=== PATIENT | female | born 1970 | race Caucasian/White ===

== ENCOUNTER 2018-09-06 09:17 | Day surgery (SDC) | payer OTHER ==
[2018-08-31 18:20] VITALS: BMI 18.0
[2018-09-06] MEDS ORDERED: MIDAZOLAM HCL 2 MG/2 ML SINGLE DOSE VIAL ONE ×2 (10:09→11:46)
[2018-09-06] MEDS ORDERED: ROPIVACAINE HCL 0.5% 30ML VIAL ONE (10:10)
[2018-09-06] MEDS ORDERED: ceFAZolin SODIUM 1 GM VIAL ONE (11:15)
[2018-09-06] MEDS ORDERED: PROPOFOL 20 ML ONE ×5 (11:36→12:29)
[2018-09-06 14:57] VITALS: TEMP 97.8
[2018-09-06] MEDS ORDERED: oxyCODONE HCL 5 MG TABLET PO PRN ×2 (15:25)
[2018-09-06] MEDS ORDERED: ONDANSETRON 4 MG/2 ML VIAL IVPUSH PRN (15:25)
[2018-09-06] MEDS ORDERED: LACTATED RINGERS SOLUTION 1,000 ML IV SCH (15:30)
[2018-09-06 15:39] VITALS: BP 114/68; PULSE 80
--- NOTE | 2018-09-07 13:22 | OP ---
DATE OF OPERATION: 09/06/2018 PREOPERATIVE DIAGNOSIS: Left comminuted displaced intraarticular distal radius fracture, status post open reduction internal fixation with re-displacement of fracture. POSTOPERATIVE DIAGNOSIS: Left comminuted displaced intraarticular distal radius fracture, status post open reduction internal fixation with re-displacement of fracture. OPERATIVE PROCEDURE: 1. Revision open reduction internal fixation of left comminuted intraarticular displaced distal radius fracture with internal fixation of 3 or more fragments. 2. Bone graft substitute placement. 3. Removal of left wrist prosthesis. 4. Left wrist brachioradialis tenotomy. SURGEON: Chandler Phipps MD BILLING MANAGER: CUONG Schwab ANESTHESIA: Regional. COMPLICATIONS: None. ESTIMATED BLOOD LOSS: Minimal. INDICATIONS FOR PROCEDURE: The patient is a 47-year-old female who is about 1 month status post distal radius fracture. She was treated with open reduction internal fixation by another surgeon and upon displacement of the fracture after surgery she was referred to me for further evaluation and possible surgical fixation. I discussed the possibilities with the patient and she decided to proceed with revision open reduction internal fixation with the specific understanding that there may not be adequate bone stock to prevent further collapse and that this likely would not be able to be fixed perfectly. She also understands that her outcome would not be perfect and she will likely have some stiffness and possibly some arthrosis and possible need for further surgery. She desired to proceed. PROCEDURE: After proper identification of the patient and the correct operative site, patient was given a nerve block by the anesthesiologist. She was then brought to the operating room and placed supine on the operating room table where sedation was also given. Intravenous antibiotics were also given. Of note, the patient did have a prior injury to her hand and had a contracture of her finger. The other fingers were moving pretty well. The left upper extremity was prepped and draped in usual sterile fashion. A well-padded tourniquet was placed with a sterile prep. Esmarch bandage used to exsanguinate left upper extremity. Tourniquet was inflated to 250 mmHg. Patient's prior incision was recreated and enlarged slightly proximally and distally. Blunt and sharp dissection was brought through the subcutaneous tissue taking are to protect all tendons and neurovascular structures. The flexor carpi radialis tendon along with the contents of the carpal canal as well as the flexor pollicis longus were bluntly and gently retracted in an ulnarward direction for the remainder of the procedure. Radial artery was retracted radially. Scar tissue was found over the plate and was divided. The prior prosthesis was removed including all the screws. Many of the distal screws were loose. Once the plate was removed, the bone was debrided of any scar tissue. The fracture was significantly displaced and comminuted and fixed in this position with early healing. Careful subperiosteal dissection was performed removing significant amounts of callus. Even once this was completed, mobilization of the distal fragment was not possible. Therefore, a radial-sided brachioradialis tenotomy was performed by elevating the brachioradialis off of the distal radius in a subperiosteal fashion and lengthening it appropriately. First dorsal compartment was also released subperiosteally. Dorsal callus was also removed carefully after pronating the proximal shaft in relation to the distal fragments. Once this was accomplished, I was able to reduce the fracture into a satisfactory position. This was then held with an [employer] Acu-Loc distal radius plate with distal locking screws and proximal nonlocking screws in bicortical fashion. This achieved satisfactory alignment both visually as well as palpably and confirmed radiographically in multiple planes. There was a very thin wafer of distal radius articular surface and subchondral bone from about the mid radius and ulnar. This was supported by a locking screw, but secure stable fixation was only partially possible. Therefore, given this factor and the fact that there was a void in the bone dorsally and ulnarly, a bone graft substitute was used. This was a hardening calcium phosphate cement provided by [employer]. Once this was completed, the area was stable. Final radiographs confirmed proper placement of hardware and sizing of all hardware. Reduction was also confirmed. The area was irrigated and repaired in layers. Splint was placed. Sterile dressings were applied. Patient was reversed from anesthesia and brought to the recovery room in stable condition. Of note, the distal radioulnar joint and scapholunate intervals were found to be stable. Keven Heck, the minister assistant, was integral throughout this procedure. Procedure could not have been performed without a skilled operative minister assistant. Lisandra [id number]
--- NOTE | 2018-09-08 12:44 | PATH ---
Surgical Pathology Report Patient Name: JAROD PETERSEN Med. Rec. #: [id number] /Age/Gender: 1970 (Age: 47) / F Account: [id number] Location: [facility] AMBULATORY Taken: 09/06/2018 Received: 09/06/2018 Reported: 09/08/2018 Physicians: Chandler Phipps M.D. Specimen(s) Received LEFT WRIST EXPLANTS Clinical History Left wrist fracture Final Diagnosis ORTHOPEDIC HARDWARE, LEFT WRIST, REMOVAL: METALLIC PLATE AND SCREWS CONSISTENT WITH ORTHOPEDIC HARDWARE (GROSS ONLY). Electronically Signed Chris Foster M.D. Gross Description Received fresh labeled "left wrist explants," is a 4.9 x 2.2 x 0.2 cm juan metallic plate. Also received within the same container are 8 metallic screws ranging from 1.3-2.1 cm in length. No soft tissue is present. No sections are submitted, gross only. 09/07/2018 saudi09/07/2018
== END 2018-09-06 15:40 | disposition home or self-care (01) ==
LOC: FASU 09:17
PROVIDERS: ATTEND Orthopaedic Surgery Hand Surgery
PROC: 0PPJ04Z Removal of Internal Fixation Device from Left Radius, Open Approach (ICD-10-PCS; 2018-09-06)
PROC: 0LN50ZZ Release Right Lower Arm and Wrist Tendon, Open Approach (ICD-10-PCS; 2018-09-06)
PROC: 0PSJ04Z Reposition Left Radius with Internal Fixation Device, Open Approach (ICD-10-PCS; principal; 2018-09-06 11:47)
DX: S52.572S Other intraarticular fracture of lower end of left radius, sequela (principal); X58.XXXS Exposure to other specified factors, sequela
CPT/HCPCS: 20680; 25290; 25609; C1713; 73110-TC-LT-FY; 84703; 88300-TC; 94760

== ENCOUNTER 2020-02-27 11:34 | Day surgery (SDC) | payer OTHER ==
[2020-02-25 15:05] VITALS: BMI 20.8
[2020-02-27 12:26] VITALS: TEMP 98.2
[2020-02-27] MEDS ORDERED: MIDAZOLAM HCL 2 MG/2 ML SINGLE DOSE VIAL ONE (12:34)
[2020-02-27] MEDS ORDERED: ROPIVACAINE HCL 0.5% 30ML VIAL ONE (12:34)
[2020-02-27] MEDS ORDERED: ONDANSETRON 4 MG/2 ML VIAL IVPUSH PRN (13:09)
[2020-02-27] MEDS ORDERED: oxyCODONE HCL 5 MG TABLET PO PRN (13:09)
[2020-02-27] MEDS ORDERED: LACTATED RINGERS SOLUTION 1,000 ML IV SCH (13:15)
[2020-02-27] MEDS ORDERED: DEXAMETHASONE SOD PHOSPHATE 4 MG/1 ML VIAL ONE (13:54)
[2020-02-27] MEDS ORDERED: ceFAZolin SODIUM 1 GM VIAL ONE (13:54)
[2020-02-27] MEDS ORDERED: GUM MASTIC/STORAX/MSAL/ALCOHOL 1 DRP DROPSBTL MC ONE (14:38)
--- OUTSIDE RECORDS SUMMARY | 2020-02-27 15:16 | XMS ---
:1970 Author Organization [facility] Care Team Providers Name Role Phone SWEETIE Unavailable Unavailable Re-disclosure Warning The records that you are about to access may contain information from federally- assisted alcohol or drug abuse programs. If such information is present, then the following federally mandated warning applies: This information has been disclosed to you from records protected by federal confidentiality rules (42 CFR part 2). The federal rules prohibit you from making any further disclosure of this information unless further disclosure is expressly permitted by the written consent of the person to whom it pertains or as otherwise permitted by 42 CFR part 2. A general authorization for the release of medical or other information is NOT sufficient for this purpose. The Federal rules restrict any use of the information to criminally investigate or prosecute any alcohol or drug abuse patient.The records that you are about to access may contain highly sensitive health information, the redisclosure of which is protected by Article 27-F of the [facility] Public Health law. If you continue you may haveaccess to information: Regarding HIV / AIDS; Provided by facilities licensed or operated by the [facility] Office of Mental Health; or Provided by the [facility] Office for People With Developmental Disabilities. If such information is present, then the following [facility] mandated warning applies: This information has been disclosed to you from confidential records which are protected by state law. State law prohibits you from making any further disclosure of this information without the specific written consent of the person to whom it pertains, or as otherwise permitted by law. Any unauthorized further disclosure in violation of state law may result in a fine or [place] health [facility] sentence or both. A general authorization for the release of medical or other information is NOT sufficient authorization for further disclosure. Encounters Encounter Providers Location Date Indications Data Source(s ) Outpatient 04/07/2020 01:45:00 [facility] 11/02/2019 03:00:00 [facility] Out[facility] 11/02/2019 02:15:00 [facility] PM EDT - 11/02/2019 [facility] 02:27:20 PM EDT Patient discharged. Outpatient 05/28/2019 02:45:00 PM EST - [facility] 05/28/2019 01:54:40 PM EST System Inc Patient discharged. Outpatient 02/26/2019 12:00:00 AM EDT - [facility] 02/26/2019 04:57:01 PM EDT System Inc Patient discharged. Outpatient 02/05/2019 05:00:00 PM EDT - [facility] 02/05/2019 05:07:34 PM EDT System Inc Patient discharged. Outpatient 01/23/2019 04:45:13 PM EDT [facility] Outpatient 01/23/2019 04:30:00 PM EDT - [facility] 01/23/2019 05:12:33 PM EDT System Inc Patient discharged. Outpatient 01/09/2019 [facility] 04:24:39 PM EDT [facility] Outpatient 10/26/2018 [facility] 04:29:27 PM EDT [facility] Outpatient 10/26/2018 [facility] 04:28:50 PM EDT [facility] Outpatient 10/26/2018 [facility] 04:26:06 PM EDT [facility] Outpatient 10/26/2018 [facility] 03:58:58 PM EDT [facility] Outpatient 10/26/2018 [facility] 03:55:55 PM EDT [facility] S Admitter: KAREN 08/17/2018 Unspecified BSMAHENDRA - Adis PITT 12:40:00 PM EST fracture of the Kendra ritan lower end of left Hospita l radius, initia Unspecified fracture of the lower end of left radius, initia S Admitter: KAREN 08/17/2018 12:35:21 Unspecified fracture [facility] - Good SANJANAAAR PM EST of the lower end [facility] left radius, initia Unspecified fracture of the lower end of left radius, initia S Admitter: KAREN 08/17/2018 11:59:00 Unspecified fracture [facility] - Good ADWOAUSHAAR AM EST - 08/17/2018 of the [facility] 07:03:00 PM EST left radius, initia Unspecified fracture of the lower end of left radius, initia S Admitter: KAREN 08/17/2018 12:00:00 Unspecified fracture [facility] - Good ADWOAUSHAAR AM EST - 08/17/2018 of the [facility] 07:03:00 PM EST left radius, initia Unspecified fracture of the lower end of left radius, initia Outpatient 07/31/2018 03:06:55 [facility] 04[facility]:39 PM EST [facility] Outpatient 07/31/2018 12:00:00 AM EST [facility] Immunizations Vaccine Date Status Description Data Source(s) New in 2011. IIV4 05/28/2019 completed Influenza 05/28/2019 [facility] 12:00:00 AM EST Vaccine (Quad) [facility] Inc This CVX code 07/19/2018 completed Influenza 07/19/2018 [facility] allows reporting 12:00:00 AM EST Vaccine Nicol of a vaccination [facility] System when formulation Inc is unknown (for example, when recording a Influenza vaccination when noted on a vaccination card) Medications Medication Brand Start Product Dose Route Administrative Pharmacy [facility] Indications Reaction Description Data Name Date Form Instructions Instructions Source(s) Diazepam 2 diazeP 2 mg Oral active Schizophreni Take 1 Tab Bon MG Oral AM 2019 a, by mouth as Sec[facility] Tablet (Valiu 12:00: unspecified needed for [facility] diazePAM m) 2 00 AM type ([facility]) Anxiety. [facility] (Valium) 2 mg EDT Daily System I nc mg tablet tablet Amount: 192 mg. Schizophrenia, unspecified type (HCC) Ketoconazole ketoconazole 11/02/2019 active Seborr hea Apply Bon 20 MG/ML (NIZORAL) 2 % 12:00:00 AM capitis to [facility] Medicated shampoo EDT scalp Charit y Shampoo twice a Health ketoconazole week System (NIZORAL) 2 % Inc shampoo Seborrhea capitis Diclofenac diclofenac 11/02/2019 4 Topical active Chondro malacia Apply 4 g Bon Sodium 0.01 (VOLTAREN) 12:00:00 AM g of both to [facility] MG/MG 1 % gel EDT patellae affected Eve rity Topical Gel area four Hea lth diclofenac (4) times Syst em (VOLTAREN) daily. Inc 1 % gel Chondromalacia of both patellae olanzapine 20 ZyPREXA 20 mg 10/14/2019 active TAKE 1 Bon MG Oral Tablet tablet 12:00:00 AM T ABLET BY [facility] [Zyprexa] EDT MOUTH EVERY Eve rity ZyPREXA 20 mg DAY Heal th tablet DIRECTED System Inc 200 ACTUAT ProAir HFA 90 09/07/2019 active TAKE 2 Bon Albuterol 0.09 mcg/actuation 12:00:00 AM PUFFS EVERY [facility] MG/ACTUAT inhaler EDT 4-6 HOURS Ch arity Metered Dose NEEDED He [facility] Inhaler System [ProAir] Inc ProAir HFA 90 mcg/actuation inhaler 30 ACTUAT BREO ELLIPTA 08/14/2019 1 Inhala active Take 1 Puff Bon fluticasone 200-25 12:00:00 AM {pu tion by [facility] furoate 0.2 mcg/dose EST ff} inhalatio n Nicol MG/ACTUAT / inhaler daily. Hea lt vilanterol System 0.025 Inc MG/ACTUAT Dry Powder Inhaler [Breo] BREO ELLIPTA 200-25 mcg/dose inhaler Amitriptyline amitriptyline 03/23/2019 20 Oral active Take 2 Tabs Bon Hydrochloride (ELAVIL) 10 mg 12:00:00 AM mg by mouth [facility] 10 MG Oral tablet EDT nightly. Eve rity Tablet Health amitriptyline System (ELAVIL) 10 mg Inc tablet 200 ACTUAT PROAIR HFA 90 03/16/2019 active TAKE 2 Bon Albuterol 0.09 mcg/actuation 12:00:00 AM PUFFS EVERY [facility] MG/ACTUAT inhaler EDT 4-6 HOURS Ch arity Metered Dose NEEDED He alth Inhaler System [ProAir] Inc PROAIR HFA 90 mcg/actuation inhaler montelukast 10 montelukast 02/28/2019 active FILL Bon MG Oral Tablet (SINGULAIR) 10 12:00:00 AM 10/7...TAKE [facility] montelukast mg tablet EDT 1 TABLET BY Nicol (SINGULAIR) 10 MOUTH EVER Y Health mg tablet DAY System Inc celecoxib 200 celecoxib 02/27/2019 aborted Strain 1 cap daily Bon MG Oral (CELEBREX) 200 12:00:00 AM of [facility] Capsule mg capsule EDT right Temitope ty celecoxib knee, Health (CELEBREX) 200 initia Sys tem mg capsule l Inc encoun ter Strain of right knee, initial encounter 30 ACTUAT BREO 02/26/2019 1 Inhalation active T pallavi 1 Puff Bon fluticasone ELLIPTA 12:00:00 AM {puff} b y [facility] furoate 0.2 200-25 EDT inhalation Nicol MG/ACTUAT / mcg/dose daily. He alth vilanterol inhaler System 0.025 Inc MG/ACTUAT Dry Powder Inhaler [Breo] BREO ELLIPTA 200-25 mcg/dose inhaler celecoxib celecoxib 02/05/2019 active Stra 1 cap daily Bon 200 MG Oral (CELEBREX) 12:00:00 AM in [facility] Capsule 200 mg EDT of Nicol celecoxib capsule [facility] (CELEBREX) t System 200 mg knee Inc capsule , init ial enco unte r Strain of right knee, initial encounter Amitriptyline amitriptyline 01/23/2019 20 Oral active Take 2 Bon Hydrochloride (ELAVIL) 10 mg 12:00:00 AM mg Tabs by [facility] 10 MG Oral tablet EDT mouth Charit y Tablet nightly. Health amitriptyline System (ELAVIL) 10 mg Inc tablet Ketoconazole ketoconazole 01/23/2019 aborted Sebor virgilio Apply to Bon 20 MG/ML (NIZORAL) 2 % 12:00:00 AM capitis scalp [facility] Medicated shampoo EDT twice a Mirela ity Shampoo [facility] Health ketoconazole System (NIZORAL) 2 % Inc shampoo Seborrhea capitis Triamcinolone triamcinolone 01/23/2019 Topical aborted Seborrhea Apply to Bon Acetonide 1 acetonide 12:00:00 AM capitis affected [facility] MG/ML Topical (KENALOG) 0.1 EDT ar ea two Nicol Cream % topical (2) times Heal th triamcinolone cream a day. Sys tem acetonide use thin Inc (KENALOG) 0.1 layer % topical cream Seborrhea capitis Acetaminophen 325 MG / oxyCODONE-acetaminophen 01/23/2019 1 O ral active Myofascial Take 1 Bon Oxycodone Hydrochloride (PERCOCET) 5-325 mg per 12:00:00 AM {tbl} pain Tab by [facility] 5 MG Oral Tablet tablet EDT syndrome mo uth Nicol oxyCODONE-acetaminophen d aily Health (PERCOCET) 5-325 mg per a s System tablet needed Inc for Pain for up to 30 days. Myofascial pain syndrome 24 HR venlafaxine-SR 01/19/2019 aborted TAKE ONE Bon venlafaxine 75 (EFFEXOR-XR) 75 12:00:00 AM CAPSULE BY [facility] MG Extended mg capsule EDT MOUTH E VERY Nicol Release Oral MORNING Heal th Capsule System venlafaxine-SR Inc (EFFEXOR-XR) 75 mg capsule Fluphenazine fluPHENAZine 01/16/2019 active TAKE 1 Bon Hydrochloride 1 (PROLIXIN) 1 mg 12:00:00 AM TABLET BY [facility] MG Oral Tablet tablet EDT MOUTH EV JENNIFER Nicol fluPHENAZine DAY Health (PROLIXIN) 1 mg Syst em tablet Inc 24 HR venlafaxine-SR 01/02/2019 active T PALLAVI ONE BY Bon venlafaxine 150 (EFFEXOR-XR) 12:00:00 AM MOUTH IN [facility] MG Extended 150 mg capsule EDT THE MORNING Nicol Release Oral Health Capsule System venlafaxine-SR Inc (EFFEXOR-XR) 150 mg capsule Acetaminophen oxyCODONE-aceta 08/14/2018 aborted 1-2 TABS Bon 325 MG / minophen 12:00:00 AM EVERY 4-6 [facility] Oxycodone (PERCOCET) EST HOURS BY Nicol Hydrochloride 5 5-325 mg per M OUTH Health MG Oral Tablet tablet NEEDED T HIS System oxyCODONE-aceta MEDICATIO N Inc minophen IS FOR (PERCOCET) AFTER 5-325 mg per SURGERY tablet quetiapine 25 SEROQUEL 25 mg 08/08/2018 aborted TAKE 1 Bon MG Oral Tablet tablet 12:00:00 AM T ABLET (25 [facility] [Seroquel] EST MG) BY ORAL Ch arity SEROQUEL 25 mg ROUTE AT H ealt tablet NIGHT System Inc 24 HR venlafaxine-SR 07/24/2018 aborted TAKE ONE Bon venlafaxine 75 (EFFEXOR-XR) 75 12:00:00 AM TABLET BY [facility] MG Extended mg capsule EST MOUTH I N Nicol Release Oral THE MORNING Health Capsule System venlafaxine-SR Inc (EFFEXOR-XR) 75 mg capsule Amitriptyline amitriptyline 07/19/2018 aborted TAKE 2 Bon Hydrochloride (ELAVIL) 10 mg 12:00:00 AM TABLETS BY [facility] 10 MG Oral tablet EST MOUTH Charit y Tablet BEFORE BED Health amitriptyline System (ELAVIL) 10 mg Inc tablet 30 ACTUAT BREO ELLIPTA 07/19/2018 active TAKE 1 PUFF Bon fluticasone 200-25 mcg/dose 12:00:00 AM BY MOUTH [facility] furoate 0.2 inhaler EST EVERY DAY Nicol MG/ACTUAT / Health vilanterol System 0.025 MG/ACTUAT Inc Dry Powder Inhaler [Breo] BREO ELLIPTA 200-25 mcg/dose inhaler 200 ACTUAT PROAIR HFA 90 07/19/2018 active TAKE 2 Bon Albuterol 0.09 mcg/actuation 12:00:00 AM PUFFS EVERY [facility] MG/ACTUAT inhaler EST 4-6 HOURS Ch arity Metered Dose NEEDED He alth Inhaler System [ProAir] PROAIR Inc HFA 90 mcg/actuation inhaler 24 HR venlafaxine-SR 07/18/2018 aborted TAKE 1 Bon venlafaxine 150 (EFFEXOR-XR) 12:00:00 AM CAPSULE BY [facility] MG Extended 150 mg capsule EST RIAZ TH EVERY Nicol Release Oral MORNING Heal th Capsule System venlafaxine-SR Inc (EFFEXOR-XR) 150 mg capsule quetiapine 25 SEROQUEL 25 mg 07/13/2018 aborted TAKE 1 Bon MG Oral Tablet tablet 12:00:00 AM T ABLET BY [facility] [Seroquel] EST MOUTH TWICE Ch arity SEROQUEL 25 mg A DAY [facility] tablet (07/11) System Inc Diazepam 2 MG diazePAM 07/11/2018 aborted TAKE 1 Bon Oral Tablet (VALIUM) 2 mg 12:00:00 AM TABLET (2 [facility] diazePAM tablet EST MG) BY ORAL Ch arity (VALIUM) 2 mg ROUTE AT He alth tablet NIGHT System Inc Acetaminophen acetaminophen-c 07/07/2018 aborted 1 TAB BY Bon 300 MG / odeine (TYLENOL 12:00:00 AM MOUTH EVERY [facility] Codeine #3) 300-30 mg EST 6 HOURS Nicol Phosphate 30 MG per tablet NEE DED FOR Health Oral Tablet PAIN MDD 2 Sy stem acetaminophen-c Inc odeine (TYLENOL #3) 300-30 mg per tablet olanzapine 5 MG ZYPREXA 5 mg 06/21/2018 15 Oral aborted Take 15 mg Bon Oral Tablet tablet 12:00:00 AM mg by m outh [facility] [Zyprexa] EST daily as Charit y ZYPREXA 5 mg needed. [facility] tablet System Inc olanzapine 15 ZYPREXA 15 mg 06/21/2018 aborted Bon MG Oral Tablet tablet 12:00:00 AM [facility] [Zyprexa] EST Nicol ZYPREXA 15 mg Health tablet System Inc montelukast 10 montelukast 06/13/2018 active FILL Bon MG Oral Tablet (SINGULAIR) 10 12:00:00 AM 107...TAKE [facility] montelukast mg tablet EST 1 TABLET BY [facility] (SINGULAIR) 10 MOUTH EVER Y Health mg tablet DAY System Inc OTHER Oral active Take by Bon mouth [facility] daily. [employer]ivan [facility]DEL Inc KAVA KAVA PO Oral active Take by B on mouth two [facility] (2) times a Nicol day. [employer] VALERIAN PO Oral active Take by Jermain n mouth as [facility] needed. IntooBR 60 ACTUAT budesonide-form 2 Inhalati aborted Take 2 Bon Budesonide 0.16 oterol {puf on Puffs b y [facility] MG/ACTUAT / (SYMBICORT) f} inhala tion [facility] formoterol 160-4.5 two (2) Hea lth fumarate 0.0045 mcg/actuation times a System MG/ACTUAT HFA inhaler day. Inc Metered Dose Inhaler [Symbicort] budesonide-form oterol (SYMBICORT) 160-4.5 mcg/actuation HFA inhaler Clonazepam 1 MG clonazePAM Oral active T pallavi by Bon Oral Tablet (KLONOPIN) 1 mg mo uth [facility] clonazePAM tablet daily. Temitope ty (KLONOPIN) 1 mg Takes is Health tablet System Inc acetaminophen Oral aborted Take by Bon (TYLENOL PO) mouth. Secou rs [facility] [employer] quetiapine 100 QUEtiapine 50 Oral aborted T pallavi 50 mg Bon MG Oral Tablet (SEROQUEL) 100 mg by mouth [facility] QUEtiapine mg tablet two (2) C harity (SEROQUEL) 100 times a He alth mg tablet day. System Inc Zolpidem zolpidem Oral active Take by B on tartrate 10 MG (AMBIEN) 10 mg mouth [facility] Oral Tablet tablet nightly. arity zolpidem Health (AMBIEN) 10 mg Syste m tablet Inc venlafaxine HCl 225 Oral aborted Take 2 25 mg Bon (EFFEXOR XR PO) mg by mouth [facility] daily. [facility] [employer] olanzapine 20 OLANZapine 20 Oral aborted Ta ke 20 mg Bon MG Oral Tablet (ZYPREXA) 20 mg mg by mouth [facility] OLANZapine tablet nightly. Eve rity (ZYPREXA) 20 mg [facility] tablet System Inc Sertraline 100 sertraline Oral aborted T pallavi by Bon MG Oral Tablet (ZOLOFT) 100 mg mouth [facility] sertraline tablet daily. Temitope ty (ZOLOFT) 100 mg tablet System Inc Amitriptyline amitriptyline Oral aborted Take by Bon Hydrochloride (ELAVIL) 10 mg m outh [facility] 10 MG Oral tablet nightly. Eve rity Tablet Health amitriptyline System (ELAVIL) 10 mg Inc tablet celecoxib 200 celecoxib Oral aborted Elver e by Bon MG Oral Capsule (CELEBREX) 200 mouth two [facility] celecoxib mg capsule (2) times a Nicol (CELEBREX) 200 day. Healt h mg capsule System Inc Diazepam 2 MG diazePAM 2 mg Oral aborted Take 2 mg Bon Oral Tablet (VALIUM) 2 mg by m outh as [facility] diazePAM tablet needed for Eve rity (VALIUM) 2 mg Anxiety. He alth tablet System Inc Clonazepam 0.5 clonazePAM 0.5 Oral active Ta ke 0.5 mg Bon MG Oral Tablet (KLONOPIN) 0.5 mg by mouth [facility] clonazePAM mg tablet nightly. Nicol (KLONOPIN) 0.5 Healt h mg tablet System Inc olanzapine 30 Oral aborted Take 30 mg Bon (ZYPREXA PO) mg by mouth Sec ours nightly. [facility] amitriptyline 20 Oral aborted Take 20 mg Bon HCl mg by mouth [facility] (AMITRIPTYLINE nightly. C harity PO) Health System Inc OTHER Oral active Take by Bon mouth two [facility] (2) times a [facility] day. [employer] COQ10, Oral aborted Take by Bon LIPOSOMAL mouth [facility] UBIQUINOL, PO daily. [facility] [employer] Inc quetiapine 125 Oral aborted Take 125 mg Bon fumarate mg by mouth [facility] (SEROQUEL PO) nightly. [facility] Insurance Providers Payer name Policy type Policy ID Covered Covered republican's Policy P holden / Coverage republican ID relationship to [employer] type [place] MEDICAID [id number] SP [id number] MEDICARE [id number] MEDICAID OF Medicaid [id number] [place] [id number] [place] [id number] MEDICA[place] OF [id number] [place] [id number] OF [place] [facility] [id number] PART A AND B 8 MEDICAID OF [id number] [place] [id number] MEDICAID OF [id number] [place] OF Medicaid [id number] [place] [id number] [place] OF Medicaid [id number] [place] [id number] [place] [id number] Problems, Conditions, and Diagnoses Code Display Name Description Problem Effective Data Type Dates Source(s) J45.40 Moderate Moderate [id number] 11/02/2019 [facility] persistent asthma persistent asthma 12:00:00 AM [facility] without without EDT Health complication complication System Inc F20.9 Schizophrenia Schizophrenia [id number] 11/02/2019 [facility] 12:00:00 AM [facility] F20.9 Schizophrenia, Schizophrenia, Diagnosis 11/02/2019 [facility] unspecified unspecified 02:03:19 PM [facility] Z23 Encounter for Encounter for Diagnosis 05/28/2019 [facility] immunization immunization 01:49:36 PM [facility] L21.0 Seborrhea capitis Seborrhea capitis Diagnosis 02/26/2019 [facility] 04:02:47 PM [facility] S86.911A Strain of Strain of Diagnosis 02/05/2019 [facility] unspecified unspecified 04:46:02 PM [facility] muscle(s) and muscle(s) and [facility] tendon(s) at tendon(s) at System Inc lower leg level, lower leg level, right leg, right leg, initial encounter initial encounter M79.18 Myalgia, other Myalgia, other Diagnosis 01/23/2019 [facility] site site 04:29:46 PM [facility] S52.502A Unspecified Unspecified Diagnosis 08/17/2018 [facility] - fracture of the fracture of the 11:59:00 AM Goo d lower end of left lower end of left EST [facility] radius, initial radius, initial Hosp ital encounter for encounter for closed fracture closed fracture R15.9 Full incontinence Full incontinence Diagnosis 07/31/2018 [facility] of feces of feces 03:06:55 PM [facility] [id number] 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 [facility] (disorder) System [facility] [id number] Seborrhea capitis Diagnosis [facility] [id number] Schizophrenia, Diagnosis [place] s unspecified type [facility]) [facility] System [facility] [id number] Strain of right Diagnosis [facility] knee, initial [facility] System [facility] [phone] Strain of right Diagnosis [facility] knee, initial Critical [facility] System [facility] [id number] Myofascial pain Diagnosis Bon Sec[facility] rs syndrome [facility] [id number] Seborrhea capitis Diagnosis [facility] [id number] Seborrhea capitis Diagnosis [facility] Surgeries/Procedures Procedure Description Date Indications Data Source(s) HCG URINE, HCG URINE, Routine 08/17/2018 12:23 9 [facility] QL. - POC QL. - POC PM EST 05:23:00 PM EST [facility] [employer] Results ID Date Data Source [id number] 08/23/2018 01:36:57 PM EDT [facility] - [place] [address] [address] [place], [place] [id number]: JAROD MORINMRN: [id number]: [id number] #: [id number] DATE: 08/17/2018OPERATIVE REPORTPROCEDURE DATE : 08/17/2018SURGEON: Karen Pitt MDASSISTANT: None.PREOPERATIVE DIAGNOSI S: Left distal radius fracture.POSTOPERATIVE DIAGNOSIS: Left distal radius fracture. PROCEDURE: Open reduction and internal fixation, left distal radius fracture.AN ESTHESIA: Regional with sedation.PROSTHESIS: Filemon distal volar radial plate.COMPL ICATIONS: None.SPECIMENS REMOVED: None.URINE OUTPUT: None.ESTIMATED BLOOD LOSS: Minimal.INDICATION FOR PROCEDURE: Unstable fracture of the left distal rad ius whichdrifted into malalignment.PROCEDURE: The patient was brought to the operatin g room and placed on theoperative table in the supine position. She was given erik onal anesthesia withsedation. The left upper extremity was prepped and draped in ster ile fashion.Time-out was called after sterile prep and drape. The patient receivedpre operative intravenous antibiotics prophylactically. Exsanguination wasper formed and the tourniquet was inflated to 250 mmHg for just under an hour.An incision was made over the flexor carpi radialis tendon through the skin.The subcutaneous layer was spread and the tendon was identified. An incisionwas made in the fascia around the tendon which was mobilized for radial andulnar sided access. An in cision was made over the pronator quadratus fascia andthe flexor pollicis tendon was identified and protected throughout the case.The pronator quadratus was elevated off of the distal radius and the fracturewas studied and identified. The rubbery anika mike formation was debrided on thevolar surface to allow for reduction and align ment. The fracture had shortenedand was in radial deviation and was carefully repos itioned so that it would comeout to appropriate length and dorsal tilt on th e lateral view. The C-arm imageintensifier was used throughout the case to optimize the fracture position. Thepercutaneous pins were placed through the radial styloid t o hold the fracture inplace and a volar distal radial plate was then affixed to the radius. Care wastaken to start with a slotted screw to optimize length and the n distally theplate was pinned. Once good alignment was in place, the plate was fi xed to thedistal radius starting with the distal row and working proximally. All of thescrews on the plate were filled in order to give the best support. There w asnot a window in the plate to pack graft through in this case and the fixationloo ked and felt solid. The wrist was put through a range of motion and therewas a bsolutely no grinding or crepitus. Care was taken to shorten a couple ofthe distal r ow screws so that they did not reach into the joint or close to thejoint as a final ou tcome. The distal radius appeared to be solidly affixed whenthe wrist was moved on imaging visualization. The patient does have aseparation of the scapholunate kvng nt which as I discussed with Dr. Phipps was notfixed at this time as in this case in the left hander of a 47-year-old patientthe recovery is more rapid and the outcome w ould be some more. The patient wasreturned to recovery room after closure.Closure w as performed with Vicryl and then Monocryl sutures and then a steriledressing was p laced. The tourniquet was released and the hand became pink veryquickly. There was no active bleeding through the dressing. The steriledressing was reinforced with a splint and soft padding and the Charles bandage waswrapped gently around the forearm to avoid over compressing and creating atourniquet effect. The patient was ret urned to the recovery room in a sling ingood condition. KAREN PITT MDDD: #08/17/2018 16:55:15/BK DT: 2018 0:46:[id number] #: [id number] / [id number] Name Value Range Interpretation Code Description Data [facility] rce(s) Supporting Document(s ) ID Date Data Source [id number] 08/18/2018 08:21:39 AM EST [facility] FLUOROSCOPYMultiple digital images were obtained during ORIF of the distal radialfracture.All interpretations durin g the procedure were made by the attending physician.TOTAL FLUOROSCOPY TIME: 1.1 mi nutes.TOTAL NUMBER (#) OF FLUOROSCOPY IMAGES: 3The films are available via PACS.Signin g date/time: 08/18/2018 8:21 AMSigned by: MARVIN JASSO Name Value Range Interpretation Code Description Data [facility] rce(s) Supporting Document(s ) ID Date Data Source [id number] 08/18/2018 07:37:53 AM EST [facility] Left breast 2 view.HISTORY: Foreign bod y.There is no evidence of a radiopaque foreign body. I am informed that thespon gecount is correct. Findings discussed with Elidia in the operating room todayat a pproximately 4:32 PM.There is open reduction internal fixation. Name Value Range Interpretation Code Description Data Supporting Source(s) Document(s ) IMP IMPRESSION: No [facility] evidence of [facility] foreign body. . Signing date/time: 08/18/2018 7:37 AMSign ed by: SHANNEN MAHONEY ID Date Data Source [id number] 08/17/2018 04:54:54 PM EST [facility] Procedure(s):RADIUS DISTAL OPEN REDUCTI ON INTERNAL FIXATION LEFT VANESSA FILEMON fixation.Anesthesia Post EvaluationMulti modal analgesia: multimodal analgesia used between 6 hours prior toanesthesia start to PACU dischargePatient location during evaluation: PACUPatient participation: c omplete - patient participatedLevel of consciousness: awake and alertPain score : 0Pain management: adequateAirway patency: patentAnesthetic complications: noCardio vascular status: acceptableRespiratory status: acceptableHydration status: acce ptablePost anesthesia nausea and vomiting: noneVisit VitalsBP 129/85Pulse 98Temp 36 .2 C (97.2 F)Resp 18Ht 5' 5" (1.651 m)Wt 48.5 kg (107 lb)SpO2 96%BMI 17.81 kg/m Name Value Range Interpretation Code Description Data Dom rce(s) Supporting Document(s ) ID Date Data Source [id number] 08/17/2018 04:50:08 PM EST [facility] BRIEF OPERATIVE NOTEDate of Procedure: Preoperative Diagnosis: Unspecified fracture of the lower end of left radius ,initial encounter for closed fracture [S52.502A]Postoperative Diagnosis: Unspe cified fracture of the lower end of left radius,initial encounterProcedure(s):RAD IUS DISTAL OPEN REDUCTION INTERNAL FIXATION LEFT VANESSA FILEMON fixationSurgeon(s) and Role: * Karen Pitt MD - PrimarySurgical Lamp Replacer: noneSurgical Staff:Circ-1: Elidia Reid RNScrub Tech-1: Corbin WylieEvent Time In Time OutIncision Start 1538Incision Close 1632Anesthesia: MACEstimated Blood Loss: minSpecimens: * No specimens in log *Findings: impacted and soft boneComplic ations: noneImplants: * No implants in log * Name Value Range Interpretation Code Description Data Dom rce(s) Supporting Document(s ) ID Date Data Source [id number] 08/17/2018 03:54:45 PM EST [facility] Anesthetic HistoryReview of Systems / Me dical HistoryPatient summary reviewed, nursing notes reviewed and pertinent lab s reviewedPulmonaryAsthma : well controlled Neuro/PsychPsychiatric history Cardiovas cularExercise tolerance: >4 METSGI/Hepatic/Renal Endo/OtherArthritis Other FindingsComments: Pt anxious about going from holding to OR, psych hxLyme d xPhysical ExamAirwayMallampati: IITM Distance: 4 - 6 cmNeck ROM: normal range of motionMouth opening: Normal CardiovascularRhythm: regularRate: jose l DentalDentition: Caps/crownsPulmonaryDecreased breath dom nds: bilateral Abdominal Other FindingsComments: No wheezing, (controll ed with BreoAnesthetic PlanASA: 2Anesthesia type: general and regional - brachial pl exus blockInduction: InhalationalAnesthetic plan and risks discussed with: Patient Name Value Range Interpretation Code Description Data Dom rce(s) Supporting Document(s ) ID Date Data Source [id number] 08/17/2018 03:49:03 PM EST [facility] Peripheral BlockStart time: 08/17/2018 3:0 5 PMEnd time: 08/17/2018 3:10 PMPerformed by: Hector Alvarado MDAuthorized by: Hector Morton MDPre-procedure:Indications: at surgeon's request and post-op pain ma nagementPreanesthetic Checklist: patient identified, risks and benefits discussed , sitemarked, timeout performed, anesthesia consent given and patient being monitore dTimeout Time: 15:05Block Type:Block Type: SupraclavicularLaterality: LeftMonitori ng: Standard ASA monitoring, continuous pulse ox, frequent vital signchecks, hea rt rate and responsive to questionsInjection Technique: Single shotProcedures: ultra sound guidedPatient Position: seatedPrep: alcoholLocation: SupraclavicularNeedle Type: SonoPlexNeedle Gauge: 22 GNeedle Localization: Anatomical landmarks, inf iltration and ultrasound guidanceAssessment:Number of attempts: 1Injection Assessment: Incremental injection every 5 mL, local visualizedsurrounding nerve on ultrasound, negative aspiration for blood and nointravascular symptomsPatien t tolerance: Patient tolerated the procedure well with no immediatecomplications Name Value Range Interpretation Code Description Data Dom rce(s) Supporting Document(s ) ID Date Data Source [id number] 08/17/2018 02:53:26 PM EST [facility] H&P Update:Jarod Marlys Morin was seen and examined.History and physical has been reviewed. The patient has been examined. Therehave been no significant clinical changes since the completion of the orig inallydated History and Physical.Signed By: Karen Pitt MD August 17, 2018 2:53 P M Name Value Range Interpretation Code Description Data Dom rce(s) Supporting Document(s ) ID Date Data Source [id number] 08/17/2018 12:37:07 PM EST [facility] Name Value Range Interpretation Description Data Sup porting Code Source(s) Document(s ) Choriogonadotropin NEG [facility] - ( test) Good [Presence] in Urine [facility] ID Date Data Source [id number] 08/16/2018 05:02:54 PM EST [facility] Patient states having left wrist surgery with Dr. Pitt. Name Value Range Interpretation Code Description Data Dom rce(s) Supporting Document(s ) ID Date Data Source [id number] 08/14/2018 10:23:44 PM EST [facility] Chief ComplaintThe Chief Complaint is: L eft Wrist.Reason For VisitVisit for: exam following treatment of a fracture and Da te of injury: 08/02/2018.Injury caused by fall.History of Present IllnessSiobmerle wilde is a 47 year old female. Visit for: Left Wrist Pain.Patient is present for a fracture follow up visit of the left wrist. Patient isdoing well and has continued c omplaints of pain in her left wrist.Current Medication Amitriptyline Oral Tablet 0 days, 0 refills Effexor Oral Tablet 0 days, 0 refills Klonopin Oral Tablet 0 days, 0 refills ZyPREXA 10MG Oral Tablet 0 days, 0 refillsMedication list reviewe d.Past Medical/Surgical HistoryDiagnoses:Asthma.Depression.Lyme diseasePartial knee replacementmedi port.Social HistoryBehavioral: No tobac co use.Alcohol: Not using alcohol.Drug Use: Not using drugs.Allergies No Known All ergiesFamily HistoryFamily medical history was unknownReview Of SystemsSystemic: No fever, no chills, and no recent weight change.Head: No headache.Neck: No neck p ain.Otolaryngeal: No epistaxis and no sore throat.Cardiovascular: No chest pain or discomfort and no palpitations.Pulmonary: No dyspnea and no cough.Gastrointestinal: N o abdominal pain.Genitourinary: No hematuria, no urinary loss of control, and no pregn chante.Endocrine: No polydipsia.Hematologic: No easy bleeding and no tendency for easy b ruising.Musculoskeletal: No lower back pain. No muscle aches. Pain localized to one ormore joints.Skin: No rash.Mild residual pain in the left wrist s/p Fx distal rad ius.Physical FindingsCAST IS LOOSE. PATIENT IS NT. SKIN EDGES INTACT.General Appear ance: Well developed. In no acute distress.Neurological: Oriented to time , place, and person.TestsImaging:X-Ray Of The Wrist:Reviewed x-ray of wrist, complete - three or more views -left.X-ray of wrist, complete - three or more views were perf ormed -left.Xrays performed and reviewed in the office 08/11/18. Fx has compressed. She haslost some radial height on the lateral view. Less than 10 degrees dorsal tilt. Primarily extra-articular.Assessment Closed fracture of the distal end of the radius -leftCounseling/Education Educational resources were provided to the patient r egarding their conditionThe patient was advised of the three general categories of treatment available:1. Live with the problem and make adjustments.2. Nonopera tive care including pills, injections, physical therapy, bracing(where applicab le), home exercises.3. Surgical care including arthroscopic or open technique s.Discussed SHE HAS LOST 1.25 CM ON THE RADIAL SIDE, AND SHE IS TILTED DORSALLY A FEWDEGREES. THIS COMBINATION MAY RESULT IN VISIBLE DEFORMITY AND WEAKNESS THAT ATTH E MOMENT COULD BE CONTROLLED BY SURGERY. I ADVISE ORIF BECAUSE THE FX DIDSHIFT TO A N UNACCEPTABLE POSITION THAT MAY AFFECT HER FUNCTION ADVERSELY. Discussion of ortho pedic surgery limitations and risksPlan Unsp fracture of the lower end of left r Oumou broussard X-Ray Today/Ext.,Upp., In Office: Wrist L (AP,lat, oblique) X-Wyatt ppts/PostOp: 03-4 days post-op Instructions: with P.A.*Surgery/ORIF: di stal radius, leftNotesMajority of visit was spent in counseling regarding diagnosis & treatmentoptions.OtherMY SCRIBE WAS PRESENT AND CONTRIBUTED TO THE DOCUMENTATION OF THIS NOTEHealth Reminders Assess Tobacco Use satisfied 08/11/2018.Karen Pitt MDElectronically signed by: Karen Pitt Date: 08/11/2018 15:32 Name Value Range Interpretation Code Description Data Dom rce(s) Supporting Document(s ) Procedure Social History Code Duration Value Status Description Data Source(s ) Alcohol intake 11/02/2019 Current completed Current [place] 12:00:00 AM EDT non-drinker of non-drinker of [facility] alcohol (finding) [employer] (finding) Smoking 11/02/2019 Never smoker completed Never smoker [place] s 12:00:00 AM EDT [employer] Alcohol intake 02/26/2019 Current completed Current [place] 12:00:00 AM EDT non-drinker of non-drinker of [facility] alcohol (finding) [facility] [employer] (finding) Smoking 02/26/2019 Never smoker completed Never smoker [place] 12:00:00 AM EDT [employer] Smoking 02/05/2019 Never smoker completed Never smoker [place] 12:00:00 AM EDT [employer] Smoking 08/17/2018 Never smoker completed Never smoker [place] 12:00:00 AM EST [employer] Smoking 07/31/2018 Never smoker completed Never smoker [place] 12:00:00 AM EST [employer] Alcohol intake No completed [place] [employer] Alcohol intake No completed [place] [employer] Vital Signs ID Date Data Source UNK Name Value Range Interpretation Code Description Data Source(s) Oxygen saturation 98 % 98 % [employer] Sec ours in Arterial blood [employer] by Pulse oximetry [employer] Body mass index 20.37 kg/m2 20.37 kg/m2 [facility] Sec ours (BMI) [Ratio] [employer] [facility] [employer] Body weight 52.164 kg 52.164 kg [employer] Body height 160 cm 160 cm [employer] Body temperature 36.28 Denise 36.28 Denise [facility] [employer] Heart rate 100 /min 100 /min [employer] Diastolic blood 80 mm[Hg] 80 mm[Hg] [facility] pressure NicolCDEL Inc Systolic blood 120 mm[Hg] 120 mm[Hg] [place] pressure [employer] System [facility] Heart rate 100 /min 100 /min [facility] [employer] Diastolic blood 86 mm[Hg] 86 mm[Hg] [facility] pressure NicolCloudPay System [facility] Systolic blood 126 mm[Hg] 126 mm[Hg] [place] pressure MOD Systems [facility] Body mass index 20.73 kg/m2 20.73 kg/m2 [facility] (BMI) [Ratio] [employer] [facility] Body weight 53.071 kg 53.071 kg [facility] MOD Systems [facility] Body height 160 cm 160 cm [facility] MOD Systems [facility] Body mass index 20.73 kg/m2 20.73 kg/m2 [facility] (BMI) [Ratio] NicolSeekPanda [facility] Body weight 53.071 kg 53.071 kg [facility] MOD Systems [facility] Body height 160 cm 160 cm [facility] MOD Systems [facility] Diastolic blood 98 mm[Hg] 98 mm[Hg] [facility] pressure NicolCDEL [facility] Systolic blood 130 mm[Hg] 130 mm[Hg] [place] pressure NicolCDEL [facility] Oxygen saturation 95 % 95 % [facility] in Arterial blood NicolCloudPay by Pulse [employer] Respiratory rate 16 /min 16 /min [facility] Zindigo NicolCDEL [facility] Heart rate 95 /min 95 /min [facility] MOD Systems [facility] Diastolic blood 55 mm[Hg] 55 mm[Hg] [facility] pressure [employer]CloudPay System [facility] Systolic blood 120 mm[Hg] 120 mm[Hg] [place] pressure NicolCDEL [facility] Body temperature 37.22 Denise 37.22 Denise [facility] [employer] System [facility] Body mass index 17.81 kg/m2 17.81 kg/m2 [facility] (BMI) [Ratio] [employer] [facility] Body weight 48.535 kg 48.535 kg [facility] Measured MOD Systems [facility] Body height 165.1 cm 165.1 cm [facility] MOD Systems [facility] Body mass index 17.81 kg/m2 17.81 kg/m2 [facility] (BMI) [Ratio] [employer] [facility] Body weight 48.535 kg 48.535 kg [facility] Measured IntooBR Body height 165.1 cm 165.1 cm Javier Ward IntooBR Patient Treatment Plan of Care Planned Activity Planned Date Details Description Data Source (s) Diclofenac Sodium 0.01 11/02/2019 12:00:00 [facility] Nicol MG/MG Topical Gel AM [facility] Ketoconazole 20 MG/ML 11/02/2019 12:00:00 [facility] Nicol Medicated Shampoo AM [facility] Diazepam 2 MG Oral Tablet 11/02/2019 12:00:00 [facility] AM [facility] olanzapine 20 MG Oral 10/14/2019 12:00:00 [facility] Tablet [Zyprexa] AM [facility] 200 ACTUAT Albuterol 0.09 09/07/2019 12:00:00 [facility] Nicol MG/ACTUAT Metered Dose AM [facility] Inhaler [ProAir] 30 ACTUAT fluticasone 08/14/2019 12:00:00 [facility] furoate 0.2 MG/ACTUAT / AM [facility] vilanterol 0.025 MG/ACTUAT Dry Powder Inhaler [Breo] Amitriptyline 03/23/2019 12:00:00 [facility] Nicol Hydrochloride 10 MG Oral AM [facility] Tablet 200 ACTUAT Albuterol 0.09 03/16/2019 12:00:00 [facility] Nicol MG/ACTUAT Metered Dose AM [facility] Inhaler [ProAir] montelukast 10 MG Oral 02/28/2019 12:00:00 [facility] Tablet AM [facility] I nc celecoxib 200 MG Oral 02/27/2019 12:00:00 [facility] Nicol Capsule AM [facility] I nc 30 ACTUAT fluticasone 02/26/2019 12:00:00 [facility] Niocl furoate 0.2 MG/ACTUAT / [facility] vilanterol 0.025 MG/ACTUAT Dry Powder Inhaler [Breo] celecoxib 200 MG Oral 02/05/2019 12:00:00 [facility] Nicol Capsule AM [facility] I nc Triamcinolone Acetonide 1 01/23/2019 12:00:00 Javier Camarena MG/ML Topical Cream AM [facility] Amitriptyline 01/23/2019 12:00:00 Javier carlisle Nicol Hydrochloride 10 MG Oral AM [facility] Tablet Acetaminophen 325 MG / 01/23/2019 12:00:00 Javier Camarena Oxycodone Hydrochloride 5 AM EDT He alth System Inc MG Oral Tablet Ketoconazole 20 MG/ML 01/23/2019 12:00:00 Javier Camarena Medicated Shampoo AM ED Health s tem Inc 24 HR venlafaxine 75 MG 01/19/2019 12:00:00 Javier Camarena Extended Release Oral AM ED [facility] Capsule Fluphenazine 01/16/2019 12:00:00 Javier Dietzity Hydrochloride 1 MG [facility] Tablet 24 HR venlafaxine 150 MG 01/02/2019 12:00:00 Javier Camarena Extended Release Oral AM ED [facility] Capsule Acetaminophen 325 MG / 08/14/2018 12:00:00 Javier Camarena Oxycodone Hydrochloride 5 AM EST He alth System Inc MG Oral Tablet quetiapine 25 MG Oral 08/08/2018 12:00:00 Javier Camarena Tablet [Seroquel] [facility] tem Inc 24 HR venlafaxine 75 MG 07/24/2018 12:00:00 Javier Camarena Extended Release Oral AM [facility] System Inc Capsule 30 ACTUAT fluticasone 07/19/2018 12:00:00 Javier Camarena furoate 0.2 MG/ACTUAT / AM EST [facility] vilanterol 0.025 MG/ACTUAT Dry Powder Inhaler [Breo] 200 ACTUAT Albuterol 0.09 07/19/2018 12:00:00 Javier Hopper Nicol MG/ACTUAT Metered Dose AM EST [facility] System [facility] Inhaler [ProAir] Amitriptyline 07/19/2018 12:00:00 Javier Dietzity Hydrochloride 10 MG Oral AM EST [facility] Tablet 24 HR venlafaxine 150 MG 07/18/2018 12:00:00 Javier Camarena Extended Release Oral AM [facility] System [facility] Capsule quetiapine 25 MG Oral 07/13/2018 12:00:00 [facility] Tablet [Seroquel] AM [facility] Health Sys tem Inc Diazepam 2 MG Oral Tablet 07/11/2018 12:00:00 Bon [facility] I nc Acetaminophen 300 MG / 07/07/2018 12:00:00 [facility] Codeine Phosphate 30 MG AM [facility] System [facility] Oral Tablet olanzapine 5 MG Oral 06/21/2018 12:00:00 [facility] Tablet [Zyprexa] AM [facility] Syst em Inc olanzapine 15 MG Oral 06/21/2018 12:00:00 [facility] Tablet [Zyprexa] [facility] Syst em Inc montelukast 10 MG Oral 06/13/2018 12:00:00 Bon [facility] Tablet [facility] I nc OTHER [facility] nc Clonazepam 0.5 MG Oral Bon S Counts include 234 beds at the [facility] Tablet [facility] nc Diazepam 2 MG Oral Tablet Jermain n [facility] I nc Clonazepam 1 MG Oral [facility]t [facility] System I nc Zolpidem tartrate 10 MG [facility] Oral Tablet [facility] I nc quetiapine fumarate [facility] (SEROQUEL PO) [facility] venlafaxine HCl (EFFEXOR Bon [facility] XR PO) Health System I nc acetaminophen (TYLENOL [facility] PO) [facility] System I nc amitriptyline HCl [place] [facility] (AMITRIPTYLINE PO) [facility] olanzapine (ZYPREXA PO) [facility] olanzapine 20 MG Oral Bon Se cours [facility] Tablet Health System I nc OTHER [facility] I nc [place] PO [facility] VALERIAN PO [facility] COQ10, LIPOSOMAL [facility] UBIQUINOL, PO Health System [facility] 60 ACTUAT Budesonide 0.16 Jermain n [facility] Nicol MG/ACTUAT / formoterol [facility] fumarate 0.0045 MG/ACTUAT Metered Dose Inhaler [Symbicort] quetiapine 100 MG Oral Bon S Counts include 234 beds at the [facility] I nc Sertraline 100 MG Oral Bon S Counts include 234 beds at the [facility]t [facility] System I nc Amitriptyline [facility] Hydrochloride 10 MG Oral [facility] Tablet celecoxib 200 MG Oral Javier arrieta Nicol Capsule Health System I madi
--- NOTE | 2020-02-27 16:02 | OP ---
DATE OF OPERATION: 02/27/2020 PREOPERATIVE DIAGNOSIS: Right comminuted intraarticular displaced distal radius fracture. POSTOPERATIVE DIAGNOSIS: Right comminuted intraarticular displaced distal radius fracture. OPERATIVE PROCEDURE: 1. Open reduction, internal fixation of right comminuted intraarticular displaced distal radius fracture. 2. Right brachioradialis tenotomy. SURGEON: Chandler Coleman MD ANESTHESIA: Regional. COMPLICATIONS: None. ESTIMATED BLOOD LOSS: Minimal. INDICATION FOR PROCEDURE: The patient presented with the above finding, indicated for operative treatment. Risks, benefits, and alternatives were discussed with her at length. Proper informed consent was obtained. DESCRIPTION OF PROCEDURE: After preoperative identification of the patient, correct operative site, patient brought to the operating room and placed supine on operating room table. Regional anesthesia had been given. Sedation had been given. Intravenous antibiotics were given. Timeout procedure was performed. Right upper extremity was prepped and draped in the usual sterile fashion. Well-padded tourniquet was placed over the sterile prep. Esmarch bandage used the exsanguinate right upper extremity. Tourniquet was inflated to 250 mmhg. Longitudinal incision was made over the volar aspect of the wrist in line with flexor carpi radialis tendon. Incision was taken sharply through the skin with blunt and sharp dissection through subcutaneous tissue. Flexor carpi radialis tendon along with the contents of the carpal canal were bluntly and gently retracted in an ulnarward direction for the remainder of the procedure. Pronator quadratus was divided and elevated off the distal radius. Comminuted, displaced fracture was noted, and the radial styloid fragments necessitated release of the brachioradialis in order to provide reduction. This was performed in a subperiosteal fashion. Fracture was then reduced and held with an Arthrex distal radius locking plate with distal locking screws and proximal bicortical nonlocking screws. This provided secure stable fixation of the fracture, confirmed radiographically in multiple planes, and proper placement and sizing were also confirmed. Distal radial and ulnar joint and scapholunate interval were stable. Wound was irrigated and repaired in layers using 4-0 Vicryl, 4-0 Monocryl. Steri-Strips were placed. Sterile dressings were applied. Wrist splint was placed. Patient was reversed from anesthesia and brought to recovery room in stable condition. She tolerated the procedure well. Keven Heck, the assistant merchandise manager, was integral throughout the procedure. Procedure could not have been performed without a skilled operative assistant merchandise manager. He was especially integral holding reduction while I placed hardware, and this could not have been done without a skilled operative assistant merchandise manager. CHANDLER COLEMAN M.D. [id number]
[2020-02-27 16:11] VITALS: BP 138/72; PULSE 66
== END 2020-02-27 16:15 | disposition home or self-care (01) ==
LOC: FASU 11:34
PROVIDERS: ATTEND Orthopaedic Surgery Hand Surgery
PROC: 0LN50ZZ Release Right Lower Arm and Wrist Tendon, Open Approach (ICD-10-PCS; 2020-02-27)
PROC: 0PSH04Z Reposition Right Radius with Internal Fixation Device, Open Approach (ICD-10-PCS; principal; 2020-02-27 14:00)
DX: S52.571A Other intraarticular fracture of lower end of right radius, initial encounter for closed fracture (principal); X58.XXXA Exposure to other specified factors, initial encounter; Y93.9 Activity, unspecified; Y92.9 Unspecified place or not applicable
CPT/HCPCS: 25290; 25609; C1713; 73110-TC-RT-FY